=== PATIENT | male | born 1955 | race African-American/Black ===

== ENCOUNTER 2024-01-24 12:08 | Emergency (ER) | payer BC, OTHER ==
[2024-01-24 12:19] VITALS: BP 138/91; PULSE 73; RESP 17; TEMP 99.7; BMI 26.6
[2024-01-24] MEDS ORDERED: IBUPROFEN 600 MG TABLET (FP) PO ONE (13:42)
[2024-01-24] MEDS ORDERED: ACETAMINOPHEN 500 MG TABLET (FP) ONE (13:43)
[2024-01-24] MEDS ORDERED: METHOCARBAMOL 500 MG TABLET ONE (13:43)
[2024-01-24] MEDS: IBUPROFEN 600 MG TABLET (FP) PO ONE (13:49)
[2024-01-24] MEDS: ACETAMINOPHEN 500 MG TABLET (FP) PO ONE (13:49)
[2024-01-24] MEDS: METHOCARBAMOL 500 MG TABLET PO ONE (13:49)
[2024-01-24 17:51] LABS: HIV INTERPRETATION NEGATIVE (NEGATIVE)
== END 2024-01-24 15:23 | disposition home or self-care (01) ==
LOC: JERFT 12:08
DX: M54.50 Low back pain, unspecified (principal); M54.2 Cervicalgia; M54.6 Pain in thoracic spine; V49.40XA Driver injured in collision with unspecified motor vehicles in traffic accident, initial encounter; Y92.410 Unspecified street and highway as the place of occurrence of the external cause
CPT/HCPCS: 36415; 72040-TC; 72100-TC-FY; 86803; 87389; 99284-25